=== PATIENT | female | born 1945 | race Caucasian/White ===

== ENCOUNTER → 2016-12-24 | Outpatient (CLI) | payer OTHER ==
[2016-12-24 09:20] LABS: ABSOLUTE NEUTROPHILS 2.5 thou/uL (1.4-8.2); BASOPHILS 0.5 % (0.0-2.0); HEMATOCRIT 40.8 % (37.0-47.0); HEMOGLOBIN 14.1 gm/dL (12.0-15.0); LYMPHOCYTES 41.7 % (24.0-44.0); MCH 32.2 pg (26.0-34.0); MCHC 34.4 g/dL (28.0-37.0); MCV 93.5 fL (80.0-100.0); MONOCYTES 9.3 % (1.0-8.0); PLATELET COUNT 211 thou/uL (150-400); POLYS 46.5 % (36.0-66.0); RBC 4.37 mil/uL (4.20-5.00); RDW 13.5 % (10.5-14.5); WBC 5.3 thou/uL (4.0-11.0)
[2016-12-24 09:24] LABS: MANUAL DIFF NO
[2016-12-24 09:29] LABS: ANION GAP 12 mmol/L (7-16); BUN 15 mg/dL (7-18); CALCIUM 9.1 mg/dL (8.5-10.1); CHLORIDE 106 mmol/L (98-107); CO2 22 mmol/L (21-32); CREATININE 0.8 mg/dL (0.6-1.0); GLUCOSE 106 mg/dL (74-106); POTASSIUM 3.7 mmol/L (3.5-5.1); SODIUM 140 mmol/L (136-145)
[2016-12-24 09:35] LABS: ALKALINE PHOSPHATASE 74 U/L (46-116); CHOLESTEROL 116 mg/dL (<200); HDL CHOLESTEROL 35 mg/dL (>40); LDL CHOLESTEROL 54 mg/dL (<100); SGOT 29 U/L (15-37); SGPT 41 U/L (30-65); TC:HDL 3.3 Ratio (Not establshd); TOTAL BILIRUBIN 1.2 mg/dL (<0.1-1.0); TOTAL PROTEIN 7.4 g/dL (6.4-8.2); TRIGLYCERIDE 139 mg/dL (<150); VLDL 28 mg/dL (<40)
== END ==
LOC: ULTRA 08:32
PROVIDERS: Nurse Practitioner
DX: R10.10 Upper abdominal pain, unspecified (principal)

== ENCOUNTER → 2017-04-24 | Outpatient (CLI) | payer OTHER ==
--- NOTE | ~2017-04-24 | EKG ---
[place] [address] [facility] [place] [address] ELECTROCARDIOGRAM REPORT Name: JOSIAH HASTINGSINE Andrew Room #: [facility]#: [id number] Admission: 04/24/17 Attend Phys: Sissy Joyner MD Discharge: Date of : 47 Report #: [id number] THIS REPORT FOR: //name// [facility] Test Date: 2017-04-24 Test Time: 13:02:44 Pat Name: NANCIE HASTINGS Department: Room: Gender: F Siebel Developer: Scooby PELAYO : 1945 Requested By: Sissy Joyner Order Number: [id number] MD: Jonathan Mejia Measurements Intervals [place] Rate: 76 P: 64 VA: 205 QRS: -5 QRSD: 89 T: 69 QT: 388 QTc: 437 Interpretive Statements Sinus rhythm No significant abnormality Compared to ECG 06/01/2002 22:58:00 ST (T wave) deviation no longer present Electronically Signed On 04-25-2017 9:40:56 CDT by Jonathan Mejia [email or web address] <ELECTRONICALLY SIGNED> By: Jonathan Mejia MD, [facility] 04/25/17 0940 1302 1302 Jonathan Mejia MD, [facility] /EPI
== END ==
LOC: CV 06:48
DX: Z01.818 Encounter for other preprocedural examination (principal)

== ENCOUNTER → 2018-05-19 | Outpatient (CLI) | payer OTHER | LOC: NUC 10:46 | DX: N91.2 Amenorrhea, unspecified (principal); Z78.0 Asymptomatic menopausal state ==

== ENCOUNTER → 2018-11-14 | Outpatient (CLI) | payer OTHER | LOC: ULTRA 13:26 | DX: D25.2 Subserosal leiomyoma of uterus (principal); R93.89 Abnormal findings on diagnostic imaging of other specified body structures ==

== ENCOUNTER → 2019-03-19 | Outpatient (CLI) | payer OTHER | LOC: ULTRA 12:53 | DX: E04.2 Nontoxic multinodular goiter (principal) ==

== ENCOUNTER → 2019-12-08 | Outpatient (CLI) | payer OTHER | LOC: ULTRA 14:09 | DX: E04.2 Nontoxic multinodular goiter (principal) ==

== ENCOUNTER → 2020-11-16 | Outpatient (CLI) | payer OTHER, MEDICARE | LOC: ULTRA 15:10 | PROVIDERS: ATTEND Family Medicine | DX: E04.2 Nontoxic multinodular goiter (principal) ==

== ENCOUNTER → 2021-05-10 | Outpatient (CLI) | payer OTHER, MEDICARE | LOC: RAD 14:37 | PROVIDERS: ATTEND Family Medicine | DX: E04.2 Nontoxic multinodular goiter (principal) ==

== ENCOUNTER → 2021-05-18 | Outpatient (CLI) | payer OTHER, MEDICARE ==
--- NOTE | 2021-05-22 18:06 | PATH ---
[facility] [address] [place] [address] PATHOLOGY RPT PROCEDURE Name: NANCIE HASTINGS Room #: [facility]#: [id number] Admission: 05/18/21 Date of : 47 Discharge: Report #: [id number] Path Case #: [id number] Note [facility] Accession Number: [id number] TESTS RESULT FLAG UNITS REF RANGE LAB Clinician Provided Cytology Information No. of containers..01 Other (Miscellaneous) Source: LEFT MID THYROID DIAGNOSIS: LEFT MID THYROID NEGATIVE FOR MALIGNANT CELLS. BETHESDA CATEGORY II. SPECIMEN CONSISTS OF ABUNDANT GROUPS OF FOLLICULAR CELLS, HEMOSIDERIN-LADEN MACROPHAGES, COLLOID AND BLOOD. 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 WATERY AND DENSE COLLOID IS PRESENT. RED BLOOD CELLS ARE PRESENT. NEGATIVE FOR NUCLEAR FEATURES OF PAPILLARY THYROID CARCINOMA Comment: Please note sample may not be entirely event representative; correlate clinically and follow-up as indicated. Pathologist ICD10: 02 E04.1 Signed out by: Juliocesar Hodge MD, Pathologist NPI- [id number] Performed by: Martha Treviño, Market Research Lead ([facility]) Gross description: 01 27ML, CLEAR PALE, PINK /LCS 05/19/2021 1614 Local FLAG LEGEND: L-Low Normal,H-High Normal,LL-Alert Low,HH-Alert High <-Panic Low,>-Panic High,A-Abnormal,AA-Critical Abnormal Performed at: [address] [place] [address] Geoff Jaramillo MD, [address] [address] Hailee Hodge MD, Specimen Comment: [id number] Performed at: 01 [facility] [address] [place] [address] PATHOLOGY RPT PROCEDURE Name: NANCIE HASTINGS Room #: [facility] Av#: [id number] Admission: 05/18/21 Date of : 47 Discharge: Report #: [id number] Path Case #: [id number] [address] [facility] [address], [place], [place] [id number] MD Geoff Jaramillo MD Phone: [phone]
== END | disposition home or self-care (01) ==
LOC: ULTRA 09:59
PROVIDERS: ATTEND Family Medicine
DX: E04.1 Nontoxic single thyroid nodule (principal)